=== PATIENT | male | born 1945 | race Caucasian/White ===

== ENCOUNTER 2019-11-12 21:50 | Emergency (ER) | payer MEDICARE, OTHER ==
[2019-11-12] MEDS ORDERED: Diphtheria,Pertussis(Acell),Tetanus Vaccine 0.5 ML SDV IM ONE (23:36)
[2019-11-12] MEDS ORDERED: Lidocaine 1% with EPINEPHrine 1:100,000 50 ML MDV INFILT ONE (23:37)
--- NOTE | 2019-11-12 23:37 | EDM.PDOC ---
ED HPI GENERAL MEDICAL PROBLEM - General Chief Complaint: Laceration Stated Complaint: LACERATION TO RIGHT LEG Time Seen by Provider: 11/12/19 23:30 Source of Information: Reports: Patient History Limitations: Reports: No Limitations - History of Present Illness INITIAL COMMENTS - FREE TEXT/NARRATIVE: 74-year-old male comes in with a laceration of his right lower extremity. He has chronic edema, is on Plavix and aspirin and is a renal transplant patient on chronic immunosuppression so his skin is fairly thin. He stepped on the running board of a pickup and slipped striking the anterior aspect of his right bello and sustaining a laceration. No other injury. Onset: Sudden Duration: Hour(s): (2 hours ago) Location: Reports: Lower Extremity, Right Associated Symptoms: Reports: No Other Symptoms Right Lower Leg Pain Score (Numeric/FACES): 6 - Related Data Allergies Allergy/AdvReac Type Severity Reaction Status Date / Time No Known Allergies Allergy Verified 11/12/19 23:31 Home Meds: Home Meds Allopurinol [Zyloprim] 2 tab PO DAILY 11/13/19 [History] Aspirin [Halfprin] 81 mg PO DAILY 11/13/19 [History] Clopidogrel [Plavix] 75 mg PO DAILY 11/13/19 [History] Furosemide 40 mg PO DAILY 11/13/19 [History] Insulin Aspart [NovoLOG] 15 units SUBCUT BID 11/13/19 [History] Mv-Mn/Iron/Folic Acid/Herb 190 [Vitamin D3 Complete Caplet] 1 tab PO DAILY 11/13/19 [History] Sirolimus 1 mg PO DAILY 11/13/19 [History] atorvaSTATin [Lipitor] 20 mg PO DAILY 11/13/19 [History] carvediloL [Carvedilol] 12.5 mg PO BID 11/13/19 [History] lisinopriL [Lisinopril] 10 mg PO DAILY 11/13/19 [History] mycophenolate mofetiL [Mycophenolate Mofetil] 2 tab PO BID 11/13/19 [History] predniSONE [Prednisone] 5 mg PO DAILY 11/13/19 [History] ED ROS GENERAL - Review of Systems Review Of Systems: See Below Constitutional: Denies: Fever, Chills Respiratory: Denies: Shortness of Breath GI/Abdominal: Denies: Nausea, Vomiting Skin: Reports: Bruising (Widespread bruising due to anticoagulation and immunosuppression medications) Psychiatric: Reports: No Symptoms ED EXAM, SKIN/RASH Exam: See Below Exam Limited By: No Limitations General Appearance: Alert, No Apparent Distress Head: Atraumatic Respiratory/Chest: No Respiratory Distress Neurological: Alert, Oriented Skin: Other (Patient has a fairly large V shaped flap laceration on the anterior aspect of the right lower leg. It is 6 cm total, and angles into the subcutaneous tissue) Course - Vital Signs Last Recorded V/S: Last Vital Signs Temp 96.3 F L 11/12/19 23:31 Pulse 54 L 11/12/19 23:31 Resp 14 11/12/19 23:31 BP 158/50 H 11/12/19 23:31 Pulse Ox 99 11/12/19 23:31 - Orders/Labs/Meds Orders: Active Orders 24 hr Category Date Time Status Vaccines to be Administered [RC] PER UNIT ROUTINE Care 11/12/19 23:36 Active Meds: Medications Discontinued Medications Generic Name Dose Route Start Last Admin Trade Name Ganeshq PRN Reason Stop Dose Admin Bacitracin 1 dose 11/13/19 00:30 Bacitracin Oint 1 Gm TOP 11/13/19 00:31 ONETIME ONE Diphtheria/Tetanus/Acell Pertussis 0.5 ml 11/12/19 23:36 11/12/19 23:59 Adacel IM 11/12/19 23:37 0.5 ml .ONCE ONE Administration Lidocaine/Epinephrine 30 ml 11/12/19 23:37 11/12/19 23:58 Xylocaine 1% With Epinephrine 1:100,000 INFILT 11/12/19 23:38 30 ml ONETIME ONE Administration - Re-Assessments/Exams Free Text/Narrative Re-Assessment/Exam: 11/13/19 00:38 The area was anesthetized with 1% lidocaine with epinephrine, cleansed thoroughly with saline and Hibiclens and thirteen 4-0 Ethilon sutures were used to close the laceration. Topical bacitracin and a pressure dressing was applied. Patient was placed on cephalexin 500 mg 3 times a day and sutures can be removed in 9 days. Recheck sooner if concerns of infection or not healing satisfactorily. Departure - Departure Time of Disposition: 01:08 Disposition: Home, Self-Care 01 Clinical Impression: Laceration of leg Qualifiers: Encounter type: initial encounter Laterality: right Qualified Code(s): S81.811A - Laceration without foreign body, right lower leg, initial encounter - Discharge Information Instructions: Laceration Care, Adult Referrals: PCP,None [Primary Care Provider] - Forms: ED Department Discharge Care Plan Goals: Keep wound covered and clean while healing, and take antibiotic 3 times a day until gone. Sutures can be removed in 9 or 10 days. Recheck sooner if concerns of infection or not healing satisfactorily. Sepsis Event Note (ED) - Evaluation Sepsis Screening Result: No Definite Risk - Focused Exam Vital Signs: Vital Signs Temp Pulse Resp BP Pulse Ox 11/12/19 23:31 96.3 F L 54 L 14 158/50 H 99 - My Orders Last 24 Hours: My Active Orders 11/12/19 23:36 Vaccines to be Administered [RC] PER UNIT ROUTINE - Assessment/Plan Last 24 Hours: My Active Orders 11/12/19 23:36 Vaccines to be Administered [RC] PER UNIT ROUTINE
[2019-11-13] MEDS ORDERED: Bacitracin Oint 1 GM U/D Packet TOP ONE (00:30)
== END 2019-11-13 01:00 | disposition home or self-care (01) ==
LOC: JP.ED 21:50
DX: S81.811A Laceration without foreign body, right lower leg, initial encounter (principal); Z23 Encounter for immunization; Z79.82 Long term (current) use of aspirin; Z79.02 Long term (current) use of antithrombotics/antiplatelets; Z79.899 Other long term (current) drug therapy; W22.8XXA Striking against or struck by other objects, initial encounter
CPT/HCPCS: 12002; 90471; 90715; 99282-25; 99283